=== PATIENT | female | born 1980 | race Caucasian/White ===

== ENCOUNTER → 2022-09-02 | Outpatient (CLI) | payer OTHER | LOC: MC.RAD 07:36 | DX: Z12.31 Encounter for screening mammogram for malignant neoplasm of breast (principal) ==

== ENCOUNTER 2023-09-22 07:50 | Day surgery (SDC) | payer OTHER ==
[~2023-09-22] VITALS: Ht 162.6 cm; Wt 107.1 kg
[~2023-09-22 07:50] MED LIST: LR 1,000 ML IV SCH; Ondansetron 4 MG/2 ML VIAL IV PRN
[2023-09-22 08:00] VITALS: BP 107/75; PULSE 79; TEMP 97.4
[2023-09-22] MEDS ORDERED: WEGOVY0.5 MG/0.5 SQ (08:10)
--- NOTE | 2023-09-22 08:27 | NUR ---
The patient ambulated back to [facility] independently using a steady gait and appeared to tolerate the activity well. Vital signs obtained. Consent signed. 20G IV started in right hand with one stick, LR infusing without difficulty. Assessment completed. Home medications reconcilled. Warm blanket provided. , [place], brought back to be at her bedside. Denies any further needs at this time.
[2023-09-22 09:10] VITALS: BP 102/58; PULSE 96; TEMP 97.4
--- NOTE | 2023-09-22 09:19 | NUR ---
0910 PATIENT RETURNS TO [facility] [place]IA [facility]ART. PT AWAKE AND ALERT. RESPIRATIONS UNLABORED. AMBULATED TO RECLINER CHAIR WITH 2:1 SBA. PT DENIES NAUSEA OR ABDOMINAL PAIN. HOOKED UP TO MONITOR AND VS OBTAINED. CALL LIGHT AT SIDE AND PRESENT. PATIENT TOLERATING TOAST AND WATER WITHOUT NAUSEA OR DIFFICULTY SWALLOWING (EGD ONLY). 0930 IN ROOM SPEAKING WITH PATIENT. 930 D/C INSTRUCTIONS REVIEWED WITH PATIENT. PT VERBALIZED UNDERSTANDING AND A COPY OF INSTRUCTIONS PROVIDED IN D/C FOLDER. 940 PATIENT DRESSES SELF. 945 PATIENT DISCHARGED FROM UNIT VIA W/C TO A PERSONAL VEHICLE. PT LEFT HOSPITAL IN STABLE CONDITION.
[2023-09-22 09:25] VITALS: BP 100/69; PULSE 89
[2023-09-22 09:35] VITALS: BP 98/69; PULSE 83
== END 2023-09-22 09:38 | disposition home or self-care (01) ==
LOC: SDCO 07:50
DX: Z12.11 Encounter for screening for malignant neoplasm of colon (principal)
CPT/HCPCS: J2704; J7120

== ENCOUNTER → 2023-11-02 | Outpatient (CLI) | payer OTHER ==
[~2023-11-02] MED LIST changes: -LR 1,000 ML IV SCH; -Ondansetron 4 MG/2 ML VIAL IV PRN; +WEGOVY0.5 MG/0.5 SQ
== END ==
LOC: MC.RAD 06:55
DX: Z12.31 Encounter for screening mammogram for malignant neoplasm of breast (principal)

== ENCOUNTER → 2023-11-30 | Outpatient (CLI) | payer OTHER | LOC: COL.RAD 11:28 | DX: R59.9 Enlarged lymph nodes, unspecified (principal) ==